=== PATIENT | female | born 2000 | race American Indian/Alaskan Native ===

== ENCOUNTER 2020-03-19 16:41 | Inpatient (IN) | payer OTHER ==
[2020-03-19] MEDS ORDERED: Water For Irrigation,Sterile 1,000 ML Container IRR PRN (23:22)
[2020-03-19] MEDS ORDERED: Methylergonovine 0.2 MG/1 ML Amp IM PRN (23:22)
[2020-03-19] MEDS ORDERED: Sodium Chloride 0.9% 10 ML SDV IV PRN (23:22)
[2020-03-19] MEDS ORDERED: Tranexamic Acid 1,000 MG in Sodium Chloride 0.9% 100 ML IV PRN (23:22)
[2020-03-19] MEDS ORDERED: Carboprost Tromethamine 250 MCG/1 ML Amp IM PRN (23:22)
[2020-03-19] MEDS ORDERED: Misoprostol 200 MCG Tab PO PRN (23:22)
[2020-03-19] MEDS ORDERED: Butorphanol 1 MG/ML SDV IVPUSH PRN (23:22)
[2020-03-19] MEDS ORDERED: Terbutaline 1 MG/ML SDV SUBCUT PRN (23:22)
[2020-03-19] MEDS ORDERED: Ondansetron 4 MG/2 ML SDV IVPUSH PRN (23:22)
[2020-03-19] MEDS ORDERED: Sodium Chloride 0.9% 2.5 ML Syringe FLUSH PRN (23:22)
[2020-03-19] MEDS ORDERED: Lidocaine 1% 50 ML MDV INJECT PRN (23:22)
[2020-03-19] MEDS ORDERED: Sodium Chloride 0.9% 10 ML Syringe FLUSH PRN (23:22)
[2020-03-19] MEDS ORDERED: Oxytocin/0.9 % Sodium Chloride 30 UNIT/500 ML BAG IV SCH ×2 (23:30)
[2020-03-20] MEDS ORDERED: Misoprostol 25 MCG (1/4 of 100 MCG) Tab VAG PRN ×2 (00:01→04:01)
[2020-03-20] MEDS: Lactated Ringers 1,000 ML IV SCH ×3 (00:26→15:03)
[2020-03-20 02:34] LABS: BLOOD UREA NITROGEN,BUN 11 mg/dL (7.0-18.0); CARBON DIOXIDE,CO2 21.4 mmol/L (21.0-32.0); CHLORIDE,CL 105 mmol/L (98-107); GLUCOSE RANDOM 123 mg/dL (74-106); POTASSIUM,K 3.8 mmol/L (3.5-5.1); SODIUM,NA 139 mmol/L (136-145)
[2020-03-20] MEDS ORDERED: fentaNYL 100 MCG/2 ML SDV ONE (14:33)
[2020-03-20] MEDS ORDERED: Ropivacaine HCl/PF 100 ML ONE (14:33)
--- NOTE | 2020-03-20 15:20 | PCM.PREANE ---
Preanesthetic Assessment - Anesthesia/Transfusion/Family Hx Anesthesia History: No Prior Anesthesia Family History of Anesthesia Reaction: No Transfusion History: No Prior Transfusion(s) - Physical Assessment NPO Status Date: 03/20/20 NPO Status Time: 12:00 Height: 1.7 m Weight: 68.946 kg ASA Class: 2 - Lab Values: Laboratory Last Values WBC 7.78 K/uL (4.0-11.0) 03/19/20 23:55 RBC 4.19 M/uL (4.30-5.90) L 03/19/20 23:55 Hgb 10.6 g/dL (12.0-16.0) L 03/19/20 23:55 Hct 33.1 % (36.0-46.0) L 03/19/20 23:55 MCV 79.0 fL (80.0-98.0) L 03/19/20 23:55 MCH 25.3 pg (27.0-32.0) L 03/19/20 23:55 MCHC 32.0 g/dL (31.0-37.0) 03/19/20 23:55 RDW Std Deviation 60.1 fl (28.0-62.0) 03/19/20 23:55 RDW Coeff of Laci 21 % (11.0-15.0) H 03/19/20 23:55 Plt Count 258 K/uL (150-400) 03/19/20 23:55 MPV 9.70 fL (7.40-12.00) 03/19/20 23:55 Sodium 139 mmol/L (136-145) 03/19/20 23:55 Potassium 3.8 mmol/L (3.5-5.1) 03/19/20 23:55 Chloride 105 mmol/L (98-107) 03/19/20 23:55 Carbon Dioxide 21.4 mmol/L (21.0-32.0) 03/19/20 23:55 BUN 11 mg/dL (7.0-18.0) 03/19/20 23:55 Creatinine 0.6 mg/dL (0.6-1.0) 03/19/20 23:55 Est Cr Clr Drug Dosing 146.66 mL/min 03/19/20 23:55 Estimated GFR (MDRD) > 60.0 ml/min 03/19/20 23:55 Glucose 123 mg/dL (74-106) H 03/19/20 23:55 Calcium 8.1 mg/dL (8.5-10.1) L 03/19/20 23:55 Total Bilirubin 0.3 mg/dL (0.2-1.0) 03/19/20 23:55 AST 28 IU/L (15-37) 03/19/20 23:55 ALT 43 IU/L (14-63) 03/19/20 23:55 Alkaline Phosphatase 398 U/L (46-116) H 03/19/20 23:55 Total Protein 6.5 g/dL (6.4-8.2) 03/19/20 23:55 Albumin 2.2 g/dL (3.4-5.0) L 03/19/20 23:55 Globulin 4.3 g/dL (2.6-4.0) H 03/19/20 23:55 Albumin/Globulin Ratio 0.5 (0.9-1.6) L 03/19/20 23:55 SARS-CoV-2 RNA (ALFREDO) POSITIVE (NEGATIVE) H 03/20/20 00:15 Blood Type O POSITIVE 03/19/20 23:55 Antibody Screen NEGATIVE 03/19/20 23:55 - Allergies Allergies/Adverse Reactions: Allergies Allergy/AdvReac Type Severity Reaction Status Date / Time No Known Allergies Allergy Verified 03/19/20 23:37 - Acknowledgements Anesthesia Type Planned: Epidural Pt an Appropriate Candidate for the Planned Anesthesia: Yes Alternatives and Risks of Anesthesia Discussed w Pt/Guardian: Yes Pt/Guardian Understands and Agrees with Anesthesia Plan: Yes PreAnesthesia Questionnaire HEENT History: Reports: Impaired Vision, Otitis Media, Other (See Below) Other HEENT History: patient wears glasses, 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 Gastrointestinal History: Reports: Other (See Below) Other Gastrointestinal History: induced constipation. - induced cholestatis. LAY OUT FORMER History: Reports: , Spontaneous Neurological History: Reports: Seizure, Other (See Below) Other Neuro History: hx of "silent" seizures, never saw neurologist, triggered by anxiety Hematologic History: Reports: Anemia, Iron Deficiency - Infectious Disease History Infectious Disease History: Reports: None - Past Surgical History HEENT Surgical History: Reports: None GI Surgical History: Reports: None Neurological Surgical History: Reports: None - SUBSTANCE USE Tobacco Use Status *Q: Never Tobacco User Second Hand Smoke Exposure: No Recreational Drug Use History: No - HOME MEDS Home Medications: Home Meds Ferrous Sulfate [Iron] 325 mg PO DAILY 03/19/20 [History] Vits #93/Iron Fum/FA [ Formula Tablet] 1 each PO DAILY 03/19/20 [History] ursodioL [Ursodiol] 300 mg PO TID 03/19/20 [History] - CURRENT (IN HOUSE) MEDS Current Meds: Current Medications Butorphanol Tartrate (Stadol) 1 mg IVPUSH Q1H PRN PRN Reason: Pain Carboprost Tromethamine (Hemabate Ds) 250 mcg IM ASDIRECTED PRN PRN Reason: Post Hemorrhage Oxytocin/Sodium Chloride (Oxytocin 30 Unit/500 Ml-Ns) 30 unit in 500 mls @ 999 mls/hr IV TITRATE ALLIE Tranexamic Acid 1,000 mg/ (Sodium Chloride) 110 mls @ 660 mls/hr IV ONETIME PRN PRN Reason: Bleeding Oxytocin/Sodium Chloride (Oxytocin 30 Unit/500 Ml-Ns) 30 unit in 500 mls @ 2 mls/hr IV TITRATE ALLIE; Protocol Last Titration: 03/20/20 11:47 Dose: 10 munits/min, 10 mls/hr Documented by: Lactated Ringer's (Ringers, Lactated) 1,000 mls @ 150 mls/hr IV ASDIRECTED ALLIE Last Admin: 03/20/20 15:03 Dose: 500 mls/hr Documented by: Lidocaine HCl (Xylocaine 1%) 50 ml INJECT ONETIME PRN PRN Reason: Laceration repair Methylergonovine Maleate (Methergine) 0.2 mg IM ASDIRECTED PRN PRN Reason: Post Hemorrhage Misoprostol (Cytotec) 200 mcg PO ONETIME PRN PRN Reason: Post Hemorrhage Misoprostol (Cytotec) 25 mcg VAG ONETIME PRN PRN Reason: Cervical Ripening Last Admin: 03/20/20 01:20 Dose: 25 mcg Documented by: Misoprostol (Cytotec) 25 mcg VAG Q4H PRN PRN Reason: Cervical Ripening Last Admin: 03/20/20 05:30 Dose: 25 mcg Documented by: Ondansetron HCl (Zofran) 4 mg IVPUSH Q6H PRN PRN Reason: Nausea/Vomiting Sodium Chloride (Saline Flush) 10 ml FLUSH ASDIRECTED PRN PRN Reason: Keep Vein Open Sodium Chloride (Saline Flush) 2.5 ml FLUSH ASDIRECTED PRN PRN Reason: Keep Vein Open Sodium Chloride (Normal Saline) 10 ml IV ASDIRECTED PRN PRN Reason: IV Use Sterile Water (Sterile Water For Irrigation) 1,000 ml IRR ASDIRECTED PRN PRN Reason: delivery Terbutaline Sulfate (Brethine) 0.25 mg SUBCUT ASDIRECTED PRN PRN Reason: Tacysystole Discontinued Medications Fentanyl (Sublimaze) Confirm Administered Dose 100 mcg .ROUTE .STK-MED ONE Stop: 03/20/20 14:34 Ropivacaine (Naropin 0.2%) Confirm Administered Dose 100 mls @ as directed .ROUTE .STK-MED ONE Stop: 03/20/20 14:34
--- NOTE | 2020-03-20 15:23 | PCM.PRNOTE ---
- Free Text/Narrative Note: Anes Note Patient requests epidural for L&D> Sitting position. Leel L3-L4 midline approach. Sterile technique. Chloraprep scrub to lumbar area. Sterile fenestrated drape applied. Epidural space easily achieved single attempt using SEDRICK technique. SEDRICK at 3 cm. Cath threaded 5 cm with ease cath secured at 11 cm using sterile clear adhesive dressing. Test dose 3 cc 1.5% lido with epi negative. Loading dose 10 cc 0.2% ropivicaine with 1 mcg cc fentanyl added, in slow divided doses. Pump started with 90 cc same solution. Rate is 8 cc hr with 6 cc q 20 min prn bolus. Time with patient [id number] Janusz Gallardo CRNA
[2020-03-20] MEDS ORDERED: oxyCODONE 5 MG Tab PO PRN (17:27)
[2020-03-20] MEDS ORDERED: Bisacodyl 10 MG Supp RECTAL PRN (17:27)
[2020-03-20] MEDS ORDERED: Benzocaine/Menthol 20%-0.5% Spray 78 GM Cannister TOP PRN (17:27)
[2020-03-20] MEDS ORDERED: Acetaminophen 500 MG Tab PO PRN (17:27)
[2020-03-20] MEDS ORDERED: Ibuprofen 400 MG Tab PO PRN (17:27)
[2020-03-20] MEDS ORDERED: Lanolin 100% Cream 7 GM Tube TOP PRN (17:27)
--- NOTE | 2020-03-20 17:37 | PCM.DEL ---
L & D Note - General Info Date of Service: 03/20/20 Mother's Due Date: 04/15/20 - Delivery Note Labor: Induced by Oxytocin Cervical Ripening Method: Misoprostil, Oxytocin Delivery Outcome: Livebirth Infant Delivery Method: Spontaneous Vaginal Delivery-Single Presentation: Right Occiput Anterior (NYDIA) Nuchal Cord: Present (x1, delivered through) Anesthesia Type: Epidural, Local Anesthetic: Lidocaine (Xylocaine) 1% Plain Local Anesthetic Volume: 5cc Amniotic Fluid Description: Clear Episiotomy Type: None Laceration: 2nd Degree, Labial (right) Suture type: Vicryl, Other (plain gut) Suture size: 2-0 Placenta: Intact, Spontaneous Cord: 3 Vessels Estimated Blood Loss: 400 [place]: Bulb Syringe, Stimulated, Warmed, [place] Used Score 1 min: 9 Score 5 min: 9 - General Info Date of Service: 03/20/20 - Patient Data Weight - Most Recent: 152 lb Lab Results Last 24 Hours: Laboratory Results - last 24 hr 03/19/20 03/19/20 03/19/20 Range/Units 23:55 23:55 23:55 WBC 7.78 (4.0-11.0) K/uL RBC 4.19 L (4.30-5.90) M/uL Hgb 10.6 L (12.0-16.0) g/dL Hct 33.1 L (36.0-46.0) % MCV 79.0 L (80.0-98.0) fL MCH 25.3 L (27.0-32.0) pg MCHC 32.0 (31.0-37.0) g/dL RDW Std Deviation 60.1 (28.0-62.0) fl RDW Coeff of Laci 21 H (11.0-15.0) % Plt Count 258 (150-400) K/uL MPV 9.70 (7.40-12.00) fL Sodium 139 (136-145) mmol/L Potassium 3.8 (3.5-5.1) mmol/L Chloride 105 (98-107) mmol/L Carbon Dioxide 21.4 (21.0-32.0) mmol/L BUN 11 (7.0-18.0) mg/dL Creatinine 0.6 (0.6-1.0) mg/dL Est Cr Clr Drug Dosing 146.66 mL/min Estimated GFR (MDRD) > 60.0 ml/min Glucose 123 H (74-106) mg/dL Calcium 8.1 L (8.5-10.1) mg/dL Total Bilirubin 0.3 (0.2-1.0) mg/dL AST 28 (15-37) IU/L ALT 43 (14-63) IU/L Alkaline Phosphatase 398 H (46-116) U/L Total Protein 6.5 (6.4-8.2) g/dL Albumin 2.2 L (3.4-5.0) g/dL Globulin 4.3 H (2.6-4.0) g/dL Albumin/Globulin Ratio 0.5 L (0.9-1.6) SARS-CoV-2 RNA (ALFREDO) (NEGATIVE) Blood Type O POSITIVE Antibody Screen NEGATIVE 03/20/20 Range/Units 00:15 WBC (4.0-11.0) K/uL RBC (4.30-5.90) M/uL Hgb (12.0-16.0) g/dL Hct (36.0-46.0) % MCV (80.0-98.0) fL MCH (27.0-32.0) pg MCHC (31.0-37.0) g/dL RDW Std Deviation (28.0-62.0) fl RDW Coeff of Laci (11.0-15.0) % Plt Count (150-400) K/uL MPV (7.40-12.00) fL Sodium (136-145) mmol/L Potassium (3.5-5.1) mmol/L Chloride (98-107) mmol/L Carbon Dioxide (21.0-32.0) mmol/L BUN (7.0-18.0) mg/dL Creatinine (0.6-1.0) mg/dL Est Cr Clr Drug Dosing mL/min Estimated GFR (MDRD) ml/min Glucose (74-106) mg/dL Calcium (8.5-10.1) mg/dL Total Bilirubin (0.2-1.0) mg/dL AST (15-37) IU/L ALT (14-63) IU/L Alkaline Phosphatase (46-116) U/L Total Protein (6.4-8.2) g/dL Albumin (3.4-5.0) g/dL Globulin (2.6-4.0) g/dL Albumin/Globulin Ratio (0.9-1.6) SARS-CoV-2 RNA (ALFREDO) POSITIVE H (NEGATIVE) Blood Type Antibody Screen Med Orders - Current: Current Medications Butorphanol Tartrate (Stadol) 1 mg IVPUSH Q1H PRN PRN Reason: Pain Carboprost Tromethamine (Hemabate Ds) 250 mcg IM ASDIRECTED PRN PRN Reason: Post Hemorrhage Oxytocin/Sodium Chloride (Oxytocin 30 Unit/500 Ml-Ns) 30 unit in 500 mls @ 999 mls/hr IV TITRATE ALLIE Tranexamic Acid 1,000 mg/ (Sodium Chloride) 110 mls @ 660 mls/hr IV ONETIME PRN PRN Reason: Bleeding Oxytocin/Sodium Chloride (Oxytocin 30 Unit/500 Ml-Ns) 30 unit in 500 mls @ 2 mls/hr IV TITRATE ALLIE; Protocol Last Titration: 03/20/20 16:35 Dose: 999 munits/min, 999 mls/hr Documented by: Lactated Ringer's (Ringers, Lactated) 1,000 mls @ 150 mls/hr IV ASDIRECTED ALLIE Last Infusion: 03/20/20 16:10 Dose: 150 mls/hr Documented by: Lidocaine HCl (Xylocaine 1%) 50 ml INJECT ONETIME PRN PRN Reason: Laceration repair Last Admin: 03/20/20 16:57 Dose: 50 ml Documented by: Methylergonovine Maleate (Methergine) 0.2 mg IM ASDIRECTED PRN PRN Reason: Post Hemorrhage Misoprostol (Cytotec) 200 mcg PO ONETIME PRN PRN Reason: Post Hemorrhage Misoprostol (Cytotec) 25 mcg VAG ONETIME PRN PRN Reason: Cervical Ripening Last Admin: 03/20/20 01:20 Dose: 25 mcg Documented by: Misoprostol (Cytotec) 25 mcg VAG Q4H PRN PRN Reason: Cervical Ripening Last Admin: 03/20/20 05:30 Dose: 25 mcg Documented by: Ondansetron HCl (Zofran) 4 mg IVPUSH Q6H PRN PRN Reason: Nausea/Vomiting Sodium Chloride (Saline Flush) 10 ml FLUSH ASDIRECTED PRN PRN Reason: Keep Vein Open Sodium Chloride (Saline Flush) 2.5 ml FLUSH ASDIRECTED PRN PRN Reason: Keep Vein Open Sodium Chloride (Normal Saline) 10 ml IV ASDIRECTED PRN PRN Reason: IV Use Sterile Water (Sterile Water For Irrigation) 1,000 ml IRR ASDIRECTED PRN PRN Reason: delivery Terbutaline Sulfate (Brethine) 0.25 mg SUBCUT ASDIRECTED PRN PRN Reason: Tacysystole Discontinued Medications Fentanyl (Sublimaze) Confirm Administered Dose 100 mcg .ROUTE .STK-MED ONE Stop: 03/20/20 14:34 Ropivacaine (Naropin 0.2%) Confirm Administered Dose 100 mls @ as directed .ROUTE .ST[place]otten [place]-MED ONE Stop: 03/20/20 14:34 - Problem List Review Problem List Initiated/Reviewed/Updated: Yes - My Orders Last 24 Hours: My Active Orders 03/19/20 23:22 Peripheral IV Care [RC] . DIRECTED Butorphanol [Stadol] 1 mg IVPUSH Q1H PRN Carboprost Tromethamine [Hemabate DS] 250 mcg IM ASDIRECTED PRN Lidocaine 1% [Xylocaine 1%] 50 ml INJECT ONETIME PRN Methylergonovine [Methergine] 0.2 mg IM ASDIRECTED PRN Ondansetron [Zofran] 4 mg IVPUSH Q6H PRN Sodium Chloride 0.9% [Normal Saline] 10 ml IV ASDIRECTED PRN Sodium Chloride 0.9% [Saline Flush] 10 ml FLUSH ASDIRECTED PRN Sodium Chloride 0.9% [Saline Flush] 2.5 ml FLUSH ASDIRECTED PRN Terbutaline [Brethine] 0.25 mg SUBCUT ASDIRECTED PRN Tranexamic Acid [Cyklokapron] 1,000 mg Sodium Chloride 0.9% [Normal Saline] 100 ml IV ONETIME Water For Irrigation,Sterile [Sterile Water for Irrigation] 1,000 ml IRR ASDIRECTED PRN miSOPROStoL [Cytotec] 200 mcg PO ONETIME PRN Resuscitation Status Routine 03/19/20 23:23 Patient Status [ADT] Routine Bedrest Bathroom Privileges [RC] ASDIRECTED Communication Order [RC] ASDIRECTED Communication Order [RC] ASDIRECTED Communication Order [RC] ASDIRECTED Heart Tones [RC] CONTINUOUS Non Stress Test [RC] PER UNIT ROUTINE May Shower [RC] ASDIRECTED Notify Provider [RC] PRN Notify Provider [RC] PRN Notify Provider [RC] PRN Notify Provider [RC] STAT Oxygen Therapy [RC] ASDIRECTED Up ad Patsy [RC] ASDIRECTED Vaginal Exam [RC] PRN Vital Signs [RC] PER UNIT ROUTINE Scalp Electrode [WOMSER] Per Unit Routine Peripheral IV Insertion Adult [OM.PC] Routine 03/19/20 23:30 Lactated Ringers [Ringers, Lactated] 1,000 ml IV ASDIRECTED Oxytocin/0.9 % Sodium Chloride [Oxytocin 30 Unit/500 ML-NS] 30 unit in 500 ml IV TITRATE Oxytocin/0.9 % Sodium Chloride [Oxytocin 30 Unit/500 ML-NS] 30 unit in 500 ml IV TITRATE Medication Administration Instruction [OM.PC] Q3H 03/19/20 23:55 RPR (SYPHILIS SERO) W/ RFLX [REF] Routine 03/20/20 00:01 miSOPROStoL [Cytotec] 25 mcg VAG ONETIME PRN 03/20/20 04:01 miSOPROStoL [Cytotec] 25 mcg VAG Q4H PRN 03/20/20 Breakfast Guest Tray [DIET] 03/20/20 17:27 Patient Status [ADT] Routine May Shower [RC] ASDIRECTED Up ad Patsy [RC] ASDIRECTED Vital Signs [RC] PER UNIT ROUTINE Acetaminophen [Tylenol Extra Strength] 1,000 mg PO Q4H PRN Acetaminophen [Tylenol Extra Strength] 500 mg PO Q4H PRN Benzocaine/Menthol [Dermoplast Pain Relief 20%-0.5% [place]] 78 gm TOP ASDIRECTED PRN Docusate Sodium [Colace] 100 mg PO BID PRN Ibuprofen [Motrin] 400 mg PO Q4H PRN Ibuprofen [Motrin] 800 mg PO Q6H PRN Lanolin [Lansinoh HPA] See Dose Instructions TOP ASDIRECTED PRN bisacodyL [Dulcolax] 10 mg RECTAL ONETIME PRN oxyCODONE 5 mg PO Q2H PRN witch [place] [Tucks] 1 pad TOP ASDIRECTED PRN Assess Lochia [WOMSER] Per Unit Routine Assess Uterine Involution [WOMSER] Per Unit Routine Peripheral IV Discontinue [OM.PC] Routine 03/21/20 05:11 HEMOGLOBIN/HEMATOCRIT,HH [HEME] Timed - Assessment Assessment:: 19 year old s/p after induction of labor at 36.1wga due to cholestasis - Plan Plan:: Routine cares * Rh positive, GBS negative * Rubella non-immune, recommend MMR * PO pain medications as indicated * Regular diet as tolerated * , nursing assistance PRN Admit to floor, anticipate routine cares. Dictation #[id number]
[2020-03-21] MEDS: Witch Hazel Medicated Pads 40/Jar TOP PRN ×2 (00:08→21:08)
--- NOTE | 2020-03-21 06:09 | PCM.PNPP ---
- General Info Date of Service: 03/21/20 Admission Dx/Problem (Free Text): 19 year old PPD #1 s/p Subjective Update: Patient resting comfortably in bed. No new concerns overnight. Ambulating and voiding without difficulty. Tolerating oral intake. Lochia decreasing. Pain well controlled. Reports infant is latching well and has been cluster feeding overnight. - General Info Date of Service: 03/21/20 - Patient Data Vital Signs - Most Recent: Last Vital Signs Temp 99.8 F 03/21/20 03:45 Pulse 83 03/21/20 03:45 Resp 16 03/21/20 03:45 BP 115/73 03/21/20 03:45 Pulse Ox 98 03/21/20 03:45 Weight - Most Recent: 152 lb I&O - Last 24 Hours: Intake & Output 03/20/20 03/20/20 03/21/20 14:59 22:59 06:59 Output Total 950 Balance -950 Lab Results - Last 24 Hours: Laboratory Results - last 24 hr 03/21/20 Range/Units 04:43 Hgb 10.5 L (12.0-16.0) g/dL Hct 33.0 L (36.0-46.0) % Med Orders - Current: Current Medications Acetaminophen (Tylenol Extra Strength) 500 mg PO Q4H PRN PRN Reason: Pain Acetaminophen (Tylenol Extra Strength) 1,000 mg PO Q4H PRN PRN Reason: Pain Benzocaine/Menthol (Dermoplast Pain Relief 20%-0.5% [place]) 78 gm TOP ASDIRECTED PRN PRN Reason: Perineal Comfort Measure Last Admin: 03/21/20 00:09 Dose: 1 canister Documented by: Bisacodyl (Dulcolax) 10 mg RECTAL ONETIME PRN PRN Reason: Constipation Butorphanol Tartrate (Stadol) 1 mg IVPUSH Q1H PRN PRN Reason: Pain Carboprost Tromethamine (Hemabate Ds) 250 mcg IM ASDIRECTED PRN PRN Reason: Post Hemorrhage Docusate Sodium (Colace) 100 mg PO BID PRN PRN Reason: Constipation Emollient Ointment (Lansinoh Hpa) 0 gm TOP ASDIRECTED PRN PRN Reason: Sore Nipples Oxytocin/Sodium Chloride (Oxytocin 30 Unit/500 Ml-Ns) 30 unit in 500 mls @ 999 mls/hr IV TITRATE ALLIE Tranexamic Acid 1,000 mg/ (Sodium Chloride) 110 mls @ 660 mls/hr IV ONETIME PRN PRN Reason: Bleeding Oxytocin/Sodium Chloride (Oxytocin 30 Unit/500 Ml-Ns) 30 unit in 500 mls @ 2 mls/hr IV TITRATE ALLIE; Protocol Last Titration: 03/20/20 16:35 Dose: 999 munits/min, 999 mls/hr Documented by: Lactated Ringer's (Ringers, Lactated) 1,000 mls @ 150 mls/hr IV ASDIRECTED ALLIE Last Infusion: 03/20/20 16:10 Dose: 150 mls/hr Documented by: Ibuprofen (Motrin) 400 mg PO Q4H PRN PRN Reason: Pain Ibuprofen (Motrin) 800 mg PO Q6H PRN PRN Reason: Pain Lidocaine HCl (Xylocaine 1%) 50 ml INJECT ONETIME PRN PRN Reason: Laceration repair Last Admin: 03/20/20 16:57 Dose: 50 ml Documented by: Methylergonovine Maleate (Methergine) 0.2 mg IM ASDIRECTED PRN PRN Reason: Post Hemorrhage Misoprostol (Cytotec) 200 mcg PO ONETIME PRN PRN Reason: Post Hemorrhage Misoprostol (Cytotec) 25 mcg VAG ONETIME PRN PRN Reason: Cervical Ripening Last Admin: 03/20/20 01:20 Dose: 25 mcg Documented by: Misoprostol (Cytotec) 25 mcg VAG Q4H PRN PRN Reason: Cervical Ripening Last Admin: 03/20/20 05:30 Dose: 25 mcg Documented by: Ondansetron HCl (Zofran) 4 mg IVPUSH Q6H PRN PRN Reason: Nausea/Vomiting Oxycodone HCl (Oxycodone) 5 mg PO Q2H PRN PRN Reason: Pain Sodium Chloride (Saline Flush) 10 ml FLUSH ASDIRECTED PRN PRN Reason: Keep Vein Open Sodium Chloride (Saline Flush) 2.5 ml FLUSH ASDIRECTED PRN PRN Reason: Keep Vein Open Sodium Chloride (Normal Saline) 10 ml IV ASDIRECTED PRN PRN Reason: IV Use Sterile Water (Sterile Water For Irrigation) 1,000 ml IRR ASDIRECTED PRN PRN Reason: delivery Terbutaline Sulfate (Brethine) 0.25 mg SUBCUT ASDIRECTED PRN PRN Reason: Tacysystole [place] Annabel (Tucks) 1 pad TOP ASDIRECTED PRN PRN Reason: comfort care Last Admin: 03/21/20 00:08 Dose: 1 container Documented by: Discontinued Medications Fentanyl (Sublimaze) Confirm Administered Dose 100 mcg .ROUTE .STK-MED ONE Stop: 03/20/20 14:34 Last Admin: 03/20/20 17:58 Dose: Not Given Documented by: Ropivacaine (Naropin 0.2%) Confirm Administered Dose 100 mls @ as directed .ROUTE .STK-MED ONE Stop: 03/20/20 14:34 Last Admin: 03/20/20 17:58 Dose: Not Given Documented by: - Infant Interaction Infant Disposition, : [place] in Room with Family Infant Interaction: Holding Infant Feeding: Breastfed ; Nursed Well Support Person: Significant Other - Recovery Exam Fundal Tone: Firm Fundal Level: At Umbilicus Fundal Placement: Midline Lochia Amount: Scant Lochia Color: Rubra/Red Perineum Description: Edematous Other Perinuem Description: vag packing removed- bleeding not increased Episiotomy/Laceration: Approximated Bladder Status: Voiding Urinary Elimination: Voided - Exam General: Alert, Oriented Lungs: Normal Respiratory Effort Cardiovascular: Regular Rate GI/Abdominal Exam: Soft, Non-Tender Extremities: Normal Inspection, No Pedal Edema Skin: Warm, Dry, Intact Neurological: No New Focal Deficit Psy/Mental Status: Normal Mood - Problem List Review Problem List Initiated/Reviewed/Updated: Yes - My Orders Last 24 Hours: My Active Orders 03/20/20 Breakfast Guest Tray [DIET] 03/20/20 17:27 Patient Status [ADT] Routine May Shower [RC] ASDIRECTED Up ad Patsy [RC] ASDIRECTED Vital Signs [RC] PER UNIT ROUTINE Acetaminophen [Tylenol Extra Strength] 1,000 mg PO Q4H PRN Acetaminophen [Tylenol Extra Strength] 500 mg PO Q4H PRN Benzocaine/Menthol [Dermoplast Pain Relief 20%-0.5% [place]] 78 gm TOP ASDIRECTED PRN Docusate Sodium [Colace] 100 mg PO BID PRN Ibuprofen [Motrin] 400 mg PO Q4H PRN Ibuprofen [Motrin] 800 mg PO Q6H PRN Lanolin [Lansinoh HPA] See Dose Instructions TOP ASDIRECTED PRN bisacodyL [Dulcolax] 10 mg RECTAL ONETIME PRN oxyCODONE 5 mg PO Q2H PRN witch [place] [Tucks] 1 pad TOP ASDIRECTED PRN Assess Lochia [WOMSER] Per Unit Routine Assess Uterine Involution [WOMSER] Per Unit Routine Peripheral IV Discontinue [OM.PC] Routine - Assessment Assessment:: 19 year old s/p after induction of labor at 36.1wga due to cholestasis - Plan Plan:: Routine cares * Rh positive, GBS negative * Rubella non-immune, recommend MMR * PO pain medications as indicated * Regular diet as tolerated * , nursing assistance PRN * Reviewed options for contraception management including barrier methods, OCPs, injection, arm implant and IUD. Patient undecided at this time. Cholestasis of * Patient's symptoms resolved * May discontinue Ursodiol * Will repeat labs at visit COVID-19 positive * Droplet precautions while on labor and delivery * Patient reports symptoms have not worsened, continues to have congestion and occasional cough. * Reviewed hand hygiene and precautions for discharge. Dispo: stable. Anticipate discharge today pending patient status. Reviewed precautions for when to notify clinic including fever/chills, intractable nausea/vomiting, severe pain not controlled by Tylenol or Ibuprofen or heavy bleeding with filling more than 1 pad an hour for more than 2 hours. Questions elicited answered.
--- NOTE | 2020-03-21 06:47 | OR ---
SURGEON: DONNA AGUERO MD DATE OF PROCEDURE: 03/20/2020 PREOPERATIVE DIAGNOSES: 1. 36 week and 2-day gestation intrauterine . 2. Cholestasis of . 3. Anemia. 4. Rubella nonimmune. 5. COVID-19 positive. POSTOPERATIVE DIAGNOSES: 1. 36 week and 2-day gestation intrauterine . 2. Cholestasis of . 3. Anemia. 4. Rubella nonimmune. 5. COVID-19 positive. PROCEDURES: 1. Induction of labor. 2. Spontaneous vaginal delivery. PRIMARY SURGEON: Donna Aguero MD. ANESTHESIA: 1. Epidural. 2. 5 mL of lidocaine with epinephrine to the perineum. COMPLICATIONS: None. ESTIMATED BLOOD LOSS: 400 mL. INDICATIONS: A 19-year-old 2, para 0-0-1-0, at 36 week and 2-day gestation was diagnosed with cholestasis at approximately 32 weeks gestation. Initial bile acid level was 68. She was placed on Ursodiol and bile acids decreased to 27; however, she was continuing to have symptoms and a grade 3 placenta was noted on ultrasound. Decision made to proceed with late delivery. The patient received betamethasone x2 prior to delivery. FINDINGS: A normal-appearing male infant, cephalic presentation, clear amniotic fluid, score 9 and 9, weight 6 pounds 15 ounces, second-degree perineal laceration and right labial laceration. PROCEDURE IN DETAIL: The patient was admitted to Labor and Delivery on the evening of 03/19/2020 for induction of labor. At that time, she was found to be COVID-19 positive and precautions were administered. The patient 2 does of Cytotec overnight, found to be 3 cm on the morning of 03/20/2020 at approximately 8:30 in the morning. IV Pitocin was started at that time at 2 units and increased according to induction protocol. Artificial rupture of membranes was performed at 12:30 and cervix was 3 to 4 cm, 70, -2. Around 3 p.m. that afternoon, the patient received an epidural due to increasing pain with contractions. At approximately 4:10 in the afternoon, I was called to the patient's room due to complete cervical dilation and +2 station with the urge to push. Upon my arrival to the room, the patient started pushing with good efforts and delivery of infant occurred at 4:34 p.m. 's head delivered atraumatically. A tight nuchal was noted x1 and delivered through. The nose and mouth were bulb suctioned and the baby was handed to the waiting nursing staff and mother. After approximately 60 seconds, the umbilical cord was clamped and cut, and venous and cord blood were obtained. Arterial blood gases were not able to be obtained. The placenta then delivered atraumatically and intact. A second-degree perineal laceration was noted and repaired in usual fashion with 2-0 Vicryl. Right labial laceration was noted and repaired in usual fashion with 3-0 plain gut. During the repair, the patient reported increased discomfort and 5 mL of local anesthetic was administered. Small amount of oozing was noted at the left vaginal wall and [id number] suture was placed along with vaginal packing to be removed at approximately 5 hours. The patient tolerated the procedure well. Sponge, lap, and needle counts were correct x2. Mother and infant in room recovering at this time. ZAHRA / CRISTAL /[id number] CHARLY
[2020-03-21] MEDS: Acetaminophen 500 MG Tab PO PRN (10:03)
[2020-03-21] MEDS: Docusate Sodium 100 MG Cap PO PRN (10:04)
[2020-03-21] MEDS: Ibuprofen 800 MG Tab PO PRN (21:08)
[2020-03-22] MEDS: Acetaminophen 500 MG Tab PO PRN (04:44)
--- NOTE | 2020-03-22 08:19 | PCM.PNPP ---
- General Info Date of Service: 03/22/20 Admission Dx/Problem (Free Text): 19 year old PPD #2 s/p Subjective Update: Patient nursing infant in bed during rounds. No new concerns overnight. Ambulating and voiding without difficulty. Tolerating oral intake. Lochia decreasing. Pain well controlled. Reports is latching well, however, had elevated bilirubin last evening and has been using bili-lights. Plan to recheck levels at 1000 per patient. - General Info Date of Service: 03/22/20 - Patient Data Vital Signs - Most Recent: Last Vital Signs Temp 97.9 F 03/22/20 04:35 Pulse 79 03/22/20 04:35 Resp 16 03/22/20 04:35 BP 107/59 L 03/22/20 04:35 Pulse Ox 97 03/22/20 04:35 Weight - Most Recent: 152 lb Lab Results - Last 24 Hours: Laboratory Results - last 24 hr 03/19/20 Range/Units 23:55 RPR *REAC H (Non-Reac) RPR Titer Add Testing 1:1 H (<1:1) Med Orders - Current: Current Medications Acetaminophen (Tylenol Extra Strength) 500 mg PO Q4H PRN PRN Reason: Pain Acetaminophen (Tylenol Extra Strength) 1,000 mg PO Q4H PRN PRN Reason: Pain Last Admin: 03/22/20 04:44 Dose: 1,000 mg Documented by: Benzocaine/Menthol (Dermoplast Pain Relief 20%-0.5% [place]) 78 gm TOP ASDIRECTED PRN PRN Reason: Perineal Comfort Measure Last Admin: 03/21/20 00:09 Dose: 1 canister Documented by: Bisacodyl (Dulcolax) 10 mg RECTAL ONETIME PRN PRN Reason: Constipation Butorphanol Tartrate (Stadol) 1 mg IVPUSH Q1H PRN PRN Reason: Pain Carboprost Tromethamine (Hemabate Ds) 250 mcg IM ASDIRECTED PRN PRN Reason: Post Hemorrhage Docusate Sodium (Colace) 100 mg PO BID PRN PRN Reason: Constipation Last Admin: 03/21/20 10:04 Dose: 100 mg Documented by: Emollient Ointment (Lansinoh Hpa) 0 gm TOP ASDIRECTED PRN PRN Reason: Sore Nipples Last Admin: 03/21/20 10:04 Dose: 1 tube Documented by: Oxytocin/Sodium Chloride (Oxytocin 30 Unit/500 Ml-Ns) 30 unit in 500 mls @ 999 mls/hr IV TITRATE ALLIE Tranexamic Acid 1,000 mg/ (Sodium Chloride) 110 mls @ 660 mls/hr IV ONETIME PRN PRN Reason: Bleeding Oxytocin/Sodium Chloride (Oxytocin 30 Unit/500 Ml-Ns) 30 unit in 500 mls @ 2 mls/hr IV TITRATE ALLIE; Protocol Last Titration: 03/20/20 16:35 Dose: 999 munits/min, 999 mls/hr Documented by: Lactated Ringer's (Ringers, Lactated) 1,000 mls @ 150 mls/hr IV ASDIRECTED ALLIE Last Infusion: 03/20/20 16:10 Dose: 150 mls/hr Documented by: Ibuprofen (Motrin) 400 mg PO Q4H PRN PRN Reason: Pain Ibuprofen (Motrin) 800 mg PO Q6H PRN PRN Reason: Pain Last Admin: 03/21/20 21:08 Dose: 800 mg Documented by: Lidocaine HCl (Xylocaine 1%) 50 ml INJECT ONETIME PRN PRN Reason: Laceration repair Last Admin: 03/20/20 16:57 Dose: 50 ml Documented by: Methylergonovine Maleate (Methergine) 0.2 mg IM ASDIRECTED PRN PRN Reason: Post Hemorrhage Misoprostol (Cytotec) 200 mcg PO ONETIME PRN PRN Reason: Post Hemorrhage Misoprostol (Cytotec) 25 mcg VAG ONETIME PRN PRN Reason: Cervical Ripening Last Admin: 03/20/20 01:20 Dose: 25 mcg Documented by: Misoprostol (Cytotec) 25 mcg VAG Q4H PRN PRN Reason: Cervical Ripening Last Admin: 03/20/20 05:30 Dose: 25 mcg Documented by: Ondansetron HCl (Zofran) 4 mg IVPUSH Q6H PRN PRN Reason: Nausea/Vomiting Oxycodone HCl (Oxycodone) 5 mg PO Q2H PRN PRN Reason: Pain Sodium Chloride (Saline Flush) 10 ml FLUSH ASDIRECTED PRN PRN Reason: Keep Vein Open Sodium Chloride (Saline Flush) 2.5 ml FLUSH ASDIRECTED PRN PRN Reason: Keep Vein Open Sodium Chloride (Normal Saline) 10 ml IV ASDIRECTED PRN PRN Reason: IV Use Sterile Water (Sterile Water For Irrigation) 1,000 ml IRR ASDIRECTED PRN PRN Reason: delivery Terbutaline Sulfate (Brethine) 0.25 mg SUBCUT ASDIRECTED PRN PRN Reason: Tacysystole Witch Annabel (Tucks) 1 pad TOP ASDIRECTED PRN PRN Reason: comfort care Last Admin: 03/21/20 21:08 Dose: 1 pad Documented by: Discontinued Medications Fentanyl (Sublimaze) Confirm Administered Dose 100 mcg .ROUTE .STK-MED ONE Stop: 03/20/20 14:34 Last Admin: 03/20/20 17:58 Dose: Not Given Documented by: Ropivacaine (Naropin 0.2%) Confirm Administered Dose 100 mls @ as directed .ROUTE .STK-MED ONE Stop: 03/20/20 14:34 Last Admin: 03/20/20 17:58 Dose: Not Given Documented by: - Interaction Infant Disposition, : in Room with Family Interaction: Holding Infant Infant Feeding: Breastfed ; Nursed Well Support Person: Significant Other - Recovery Exam Fundal Tone: Firm Fundal Level: 1 Fingerbreadths Below Umbilicus Fundal Placement: Midline Lochia Amount: Small Lochia Color: Rubra/Red Perineum Description: Edematous, Other (see below) Other Perinuem Description: 2nd degree laceration Episiotomy/Laceration: Approximated Bladder Status: Voiding Urinary Elimination: Voided - Exam General: Oriented Lungs: Normal Respiratory Effort Cardiovascular: Regular Rate GI/Abdominal Exam: Soft, Non-Tender Extremities: Normal Inspection, No Pedal Edema Skin: Warm, Dry, Intact Neurological: No New Focal Deficit Psy/Mental Status: Normal Mood - Problem List Review Problem List Initiated/Reviewed/Updated: Yes - Assessment Assessment:: 19 year old s/p after induction of labor at 36.1wga due to cholestasis - Plan Plan:: Routine cares * Rh positive, GBS negative * Rubella non-immune, recommend MMR * PO pain medications as indicated * Regular diet as tolerated * , nursing assistance PRN * Reviewed options for contraception management including barrier methods, OCPs, injection, arm implant and IUD. Patient undecided at this time. Cholestasis of * Patient's symptoms resolved * May discontinue Ursodiol * Will repeat labs at visit COVID-19 positive * Droplet precautions while on labor and delivery * Patient reports symptoms have not worsened, continues to have congestion and occasional cough. * Reviewed hand hygiene and precautions for discharge. Dispo: stable. Patient did not discharge last evening due to elevated bilirubin for . Anticipate discharge today pending patient status. Reviewed precautions for when to notify clinic including fever/chills, intractable nausea/vomiting, severe pain not controlled by Tylenol or Ibuprofen or heavy bleeding with filling more than 1 pad an hour for more than 2 hours. Questions elicited answered.
[2020-03-22] MEDS: Docusate Sodium 100 MG Cap PO PRN (10:56)
[2020-03-22] MEDS: Ibuprofen 800 MG Tab PO PRN (13:06)
[2020-03-22 20:15] VITALS: BP 126/78; PULSE 76
== END 2020-03-22 21:00 | disposition home or self-care (01) | DRG 805 ==
LOC: MW.OB 16:41 → OBSVTOIN 03-20 16:41 → MW.OB 03-21 00:31
PROVIDERS: ADMIT Obstetrics & Gynecology; ATTEND Obstetrics & Gynecology
PROC: 10E0XZZ Delivery of Products of Conception, External Approach (ICD-10-PCS; principal; 2020-03-20)
PROC: 0KQM0ZZ Repair Perineum Muscle, Open Approach (ICD-10-PCS; 2020-03-20)
PROC: 10907ZC Drainage of Amniotic Fluid, Therapeutic from Products of Conception, Via Natural or Artificial Opening (ICD-10-PCS; 2020-03-20)
PROC: 3E033VJ Introduction of Other Hormone into Peripheral Vein, Percutaneous Approach (ICD-10-PCS; 2020-03-20)
PROC: 3E0P7VZ Introduction of Hormone into Female Reproductive, Via Natural or Artificial Opening (ICD-10-PCS; 2020-03-20)
PROC: 0UQMXZZ Repair Vulva, External Approach (ICD-10-PCS; 2020-03-20)
PROC: 3E0R3BZ Introduction of Anesthetic Agent into Spinal Canal, Percutaneous Approach (ICD-10-PCS; 2020-03-20)
PROC: 00HU33Z Insertion of Infusion Device into Spinal Canal, Percutaneous Approach (ICD-10-PCS; 2020-03-20)
DX: O26.62 Liver and biliary tract disorders in childbirth (principal); K83.1 Obstruction of bile duct; Z37.0 Single live birth; U07.1 COVID-19; O98.52 Other viral diseases complicating childbirth; Z3A.36 36 weeks gestation of pregnancy; O99.02 Anemia complicating childbirth; D64.9 Anemia, unspecified
CPT/HCPCS: 01967; 36415; 51702; 59025; 59409; 80053; 85014; 85018; 85027; 86592; 86850; 86900; 86901; 88307; A9270-GY; J2001; J2590; J7120; U0002